=== PATIENT | male | born 1975 | race Caucasian/White ===

== ENCOUNTER → 2018-07-21 09:18 | Outpatient (CLI) | payer OTHER, SELFPAY ==
[2018-07-21 09:40] LABS: Add Manual Diff / Slide Review NO; Basophils Percent Auto 0.9 % (0-2); Eosinophils Percent Auto 4.1 % (2-4); Hematocrit 43.2 % (41-53); Hemoglobin 14.8 g/dL (13.5-17.5); Lymphocytes Percent Auto 27.3 % (25-40); Mean Corpuscular HGB Conc 34.3 % (30-36); Mean Corpuscular Hemoglobin 30.4 PG (26-34); Mean Corpuscular Volume 88.6 fL (80-100); Monocytes Percent Auto 11.5 % (3-14); Neutrophils Absolute Auto 3400 /uL (1500-7000); Neutrophils Percent Auto 56.2 % (50-75); Platelet Count 222 X10^3/uL (150-400); Red Blood Cell Count 4.87 X10^6/uL (4.5-5.9); Red Cell Distribution Width 13.1 % (11.6-14.8); White Blood Cell Count 6.1 X10^3/uL (4.5-11.0)
[2018-07-21 10:13] LABS: Alanine Aminotransferase 27 IU/L (21-72); Albumin 4.4 g/dL (3.5-5.0); Albumin Globulin Ratio 1.4 (1.0-2.8); Alkaline Phosphatase 52 U/L (38-126); Aspartate Aminotransferase 21 IU/L (17-59); BUN Creatinine Ratio 15.5 (6-22); Bilirubin Total 0.8 mg/dL (0.2-1.3); Blood Urea Nitrogen 17 mg/dL (9-20); Calcium 9.1 mg/dL (8.4-10.2); Carbon Dioxide 27 mmol/L (22-32); Chloride 102 mmol/L (98-107); Cholesterol 155 mg/dL (140-199); Estimated Glomerular Filt Rate > 60.0 mL/min (>60); Globulin 3.2 g/dL (1.7-4.1); Glucose 109 mg/dL (70-100); HDL Cholesterol 34 mg/dL (40-60); HEMOLYSIS < 15 (0-50); LDL Cholesterol Calculated 106 mg/dL (<100); Potassium 4.4 mmol/L (3.4-5.1); Sodium 139 mmol/L (137-145); Total Protein 7.6 g/dL (6.3-8.2); Triglycerides 77 mg/dL (35-150)
[2018-07-21 10:41] LABS: TSH w/ Reflex to FT4 2.55 uIU/mL (0.47-4.68)
== END ==
PROVIDERS: PCP Family Medicine; Visit Provider Family Medicine
DX: Z00.00 Encounter for general adult medical examination without abnormal findings (principal); E66.9 Obesity, unspecified
CPT/HCPCS: 36415; 80053; 80061; 84443; 85025

== ENCOUNTER → 2018-12-15 14:48 | Outpatient (CLI) | payer OTHER, SELFPAY ==
--- NOTE | 2018-12-15 14:49 | DI.RAD.S_ITS ---
PROCEDURE: XR FOREARM RT 2V INDICATIONS: distal right forearm pain TECHNIQUE: 2 views of the forearm were acquired. COMPARISON: None. FINDINGS: Bones: No fractures or dislocations. No suspicious bony lesions. Soft tissues: No suspicious soft tissue calcifications or masses. IMPRESSION: No fracture Dictated by: Jose Whitt M.D. on 12/15/2018 at 15:07 Approved by: Jose Whitt M.D. on 12/15/2018 at 15:08
== END ==
PROVIDERS: Family Provider Family Medicine; PCP Family Medicine; Visit Provider Physician Assistant
DX: M79.631 Pain in right forearm (principal)
CPT/HCPCS: 73090

== ENCOUNTER → 2019-07-31 15:53 | Outpatient (CLI) | payer OTHER, SELFPAY ==
--- NOTE | 2019-07-31 15:55 | DI.RAD.S_ITS ---
PROCEDURE: XR CERVICAL SPINE 2V OR 3V INDICATIONS: cervical neck pain TECHNIQUE: 3 view(s) of the cervical spine were acquired. COMPARISON: None. FINDINGS: Bones: No fractures or dislocations to the C7-T1 level. The lateral masses of C1 appear intact on the odontoid view. No suspicious bony lesions. There is straightening of normal cervical curvature. Soft tissues: No prevertebral soft tissue swelling. IMPRESSION: Straightening of normal cervical curvature. Otherwise, unremarkable exam. Dictated by: Gila Geronimo M.D. on 07/31/2019 at 16:35 Approved by: Gila Geronimo M.D. on 07/31/2019 at 16:35
== END ==
PROVIDERS: PCP Family Medicine; Visit Provider Family Medicine
DX: M54.2 Cervicalgia (principal); M54.12 Radiculopathy, cervical region
CPT/HCPCS: 72040

== ENCOUNTER 2019-08-12 15:00 | Emergency (ER) | payer OTHER, SELFPAY ==
[2019-08-12 15:09] VITALS: BP 124/80; PULSE 90; RESP 18; TEMP 37.1; O2SAT 98; BMI 38.6
--- NOTE | 2019-08-12 16:21 | ED_ITS ---
HPI - Neck Pain/Injury < JOHANNA Combs - Last Filed: 08/12/19 23:57> General Chief Complaint: Neck Pain/Injury Stated Complaint: neck and shoulder pain, thinks pinched nerve Time Seen by Provider: 08/12/19 16:04 Source: patient Mode of arrival: Ambulatory Limitations: no limitations History of Present Illness HPI Narrative: This is 43-year-old male, current vapor, presents to ED with chief complain of non-traumatic right upper thoracic/neck pain radiating to R lateral arm and to ulnar aspect fingers. Patient reports pain started about 20 days ago and was seen by his PCP, Dr. Mallory, and was diagnosed with cervical radiculopathy. Patient denies trauma, injury, or fall. Patient reports mildly decreased sensation on to his fingertips but denies weakness to upper extremities. Patient reports his pain super sharp. Patient is currently taking Gabapentin, Flexeril, meloxicam, and he additionally to 1000 mg of naproxen, however, patient reports the pain is not getting better and actually worse. Patient frequently thinks about the pain. Patient reports a warm compresses help with discomfort. Pain increases with hyperextension. Patient started physical therapy last . Related Data Previous Rx's Medication Instructions Recorded phentermine 37.5 mg capsule 37.5 mg PO BID #60 tab 10/20/18 fluticasone propionate 50 2 spray INTRANASAL QDAY #16 gram 01/12/19 mcg/actuation nasal spray,suspension cromolyn 4 % eye drops 2 drop EYE-BOTH QID #10 ml 01/26/19 levocetirizine 5 mg tablet See Rx Instructions .ROUTE 03/26/19 .COMPLEX #90 tablet tadalafil 5 mg tablet 5 mg PO DAILY #30 tab 06/13/19 meloxicam 15 mg tablet 15 mg PO DAILY #30 tab 07/31/19 orlistat 120 mg capsule 120 mg PO TID #90 cap 07/31/19 cyclobenzaprine 10 mg tablet 10 mg PO TID PRN #30 tab 08/08/19 gabapentin 300 mg capsule See Rx Instructions PO DAILY #60 08/08/19 cap lidocaine 1 patch TOP DAILY #15 each 08/12/19 Allergies Allergy/AdvReac Type Severity Reaction Status Date / Time Pertussis Vaccines Allergy Intermediate Verified 08/13/19 11:45 [PERTUSSIS VACCINES] Review of Systems <JOHANNA Damon - Last Filed: 08/12/19 23:57> Review of Systems Narrative: General: Denies fever, chills, fatigue, malaise, sweats. HEENT: Denies sinus pain, ear pain, sore throat, difficulty swallowing, dizziness. Respiratory: Denies dyspnea, cough, wheezing, hemoptysis, sputum. Cardiovascular: Denies chest pain, palpitations, orthopnea, edema. Gastrointestinal: Denies nausea, vomiting, abdominal pain, diarrhea, constipation, melena. : Denies dysuria, frequency, incontinence, hematuria, urinary retention. Musculoskeletal: See HPI Skin: Denies rash, skin lesions, or other. Neurologic: Denies weakness, headache, numbness, change in speech, confusion, seizures, incoordination. Psychiatric: No concerning psychosocial issues. 12-point review of systems is negative except for those stated above. Patient History <JOHANNA Damon - Last Filed: 08/12/19 23:57> Medical History Ankle pain (Chronic 2004) Chicken pox (Resolved ~1989) Chronic back pain (Chronic 2007) Shoulder pain (Chronic 2010) Surgical History Anesthesia (Resolved) History of third molar tooth extraction (Resolved) History of vasectomy (Resolved 2009) Status post LASIK surgery (Resolved 2002) Family History Brother Age: 36 Healthy male adult Father Diabetes mellitus Heart disease Essential hypertension Grandfather Lung cancer Mother Age: 74 Diabetes mellitus Osteoporosis Social History marital status: Smoking Status: Current some day smoker alcohol intake: current (1-2 A DAY ) substance use type: does not use Smoking Status: Current some day smoker tobacco type: vaping alcohol intake frequency: holidays/special occasions only Substance Use Type: does not use Exam <JOHANNA Damon - Last Filed: 08/12/19 23:57> Narrative Exam Narrative: General appearance: well developed, well nourished, in no acute distress. Head: normocephalic, atraumatic, no scalp lesions, non-tender. ENT: Hearing grossly intact. Nose without bleeding, purulent discharge or deviation. Facial sinuses nontender to palpate. Mucous membrane moist, no mucosal lesion. Throat without erythema, tonsillar hypertrophy or exudate. Uvula in midline, airway patent. Neck/Thyroid: neck supple, full range of motion, no visible masses or meningeal signs, no step-offs. No JVD, non-tender without lymphadenopathy. Skin: no suspicious rashes, lesions over visible areas. Warm and dry and appropriate color for ethnicity. Heart: no clubbing, no cyanosis, no edema. S1 and S2 normal. RRR w/o murmurs, clicks, or bruits. Lungs: Breathing even and unlabored. No stridor. No accessory muscles used. Able to speak in full sentences. Chest: normal shape and expansion. Abdomen: non-obese, non-distended. Neurologic: alert and oriented. Cognitive exam, [employer] and PNS grossly intact on informal exam. Psych: good eye contact, normal affect. Initial Vital Signs Initial Vital Signs: Vital Signs Temperature 98.7 F 08/12/19 15:09 Pulse Rate 90 08/12/19 15:09 Respiratory Rate 18 08/12/19 15:09 Blood Pressure 124/80 08/12/19 15:09 Pulse Oximetry 98 08/12/19 15:09 Back/Spine/Pelvis Back: normal to inspection Cervical Spine: cervical ROM normal, cervical muscular tenderness (lower cervical), pain with cervical ROM (hyperextension and flexion), No cervical spasm, No cervical spinal tenderness and No step off deformity Thoracic/Lumbar Spine: thoracic and lumbar spine normal to inspection, paraspinal tenderness (upper thoracic) and thoracic spinal tenderness (upper thoracic) Extrem Right upper extremity: normal to inspection, full ROM, normal capillary refill and hand Details: neurosensory exam normal Details: radial nerve sensory function normal and ulnar nerve sensory function normal, tendon exam normal, vascular exam and normal ROM of fingers; no edema Left upper extremity: normal to inspection, full ROM and normal capillary refill; no edema <Rosendo Rodriguez, - Last Filed: 08/13/19 13:19> Initial Vital Signs Initial Vital Signs: Vital Signs Temperature 98.7 F 08/12/19 15:09 Pulse Rate 90 08/12/19 15:09 Respiratory Rate 18 08/12/19 15:09 Blood Pressure 124/80 08/12/19 15:09 Pulse Oximetry 98 08/12/19 15:09 Scores <JOHANNA Damon - Last Filed: 08/12/19 23:57> GCS [place] coma scale eye opening: Spontaneous Beto coma scale verbal response: Orientated Beto coma scale motor response: Obey commands Beto coma scale total score: 15 Course <JOHANNA Damon - Last Filed: 08/12/19 23:57> Orders Ordered: Discontinued Medications Lidocaine (Lidoderm) 1 each TOP NOW ONE Stop: 08/12/19 16:38 Last Admin: 08/12/19 17:07 Dose: 1 each Documented by: PITA Pantoprazole Sodium (Protonix) 20 mg PO NOW ONE Stop: 08/12/19 16:38 Last Admin: 08/12/19 17:07 Dose: 20 mg Documented by: PITA Prednisone (Deltasone) 40 mg PO NOW ONE Stop: 08/12/19 16:38 Last Admin: 08/12/19 17:07 Dose: 40 mg Documented by: PITA Vital Signs Vital signs: Vital Signs - 8 hr 08/12/19 17:12 Pulse Rate 78 Respiratory Rate 16 Blood Pressure [Right Arm] 136/88 Pulse Oximetry 98 <Rosendo Rodriguez DO - Last Filed: 08/13/19 13:19> Orders Ordered: Discontinued Medications Lidocaine (Lidoderm) 1 each TOP NOW ONE Stop: 08/12/19 16:38 Last Admin: 08/12/19 17:07 Dose: 1 each Documented by: PITA Pantoprazole Sodium (Protonix) 20 mg PO NOW ONE Stop: 08/12/19 16:38 Last Admin: 08/12/19 17:07 Dose: 20 mg Documented by: PITA Prednisone (Deltasone) 40 mg PO NOW ONE Stop: 08/12/19 16:38 Last Admin: 08/12/19 17:07 Dose: 40 mg Documented by: PITA Vital Signs Vital signs: Vital Signs - 8 hr 08/12/19 17:12 Pulse Rate 78 Respiratory Rate 16 Blood Pressure [Right Arm] 136/88 Pulse Oximetry 98 MDM - Neck Pain/Injury <Rich SandersJOHANNA Truong - Last Filed: 08/12/19 23:57> Differential Diagnosis Differential diagnosis: Likely cervical radiculopathy, strain of neck muscle and other (upper thoracic pain) Medical Records Attestation: I reviewed the patient's medical records. [facility] Narrative Medical decision making narrative: Cspine Xray test done on 07/31/19 did not appreciated fractures or dislocation to the C7 through T1 level with the straightening of normal cervical curvature with normal forearm x-ray test was arranged by Dr. Mallory. Since there was no new trauma or injury since then, furt her imaging test was deferred. Patient has good sensation with light touch and bilateral equal strength on upper extremities. Patient reports some numbness to his fingertips. The patient is already on Flexeril, gabapentin 300 mg TID, and meloxicam. Patient stated he had taken additional 100 mg of naproxen and not Tylenol, advised not to take additional NSAIDS while on Meloxicam. He was started on additional dose of prednisone and trial on Lidocaine patch and remaining dose have been prescribed. Return precautions were discussed with the patient and patient advised to follow up with physical therapy and continue with current medications and gabapentin could be increased. If pain persists longer than expected, patient informed he may need further imaging test such as MRI. Patient verbalized understanding and agrees with the treatment plan. Discharge Plan Departure Patient Disposition: Home Clinical Impression: Radiculopathy affecting upper extremity Discharge Date/Time: 08/12/19 17:56 Instructions: DI for Cervical Radiculopathy Activity Restrictions/Additional Instructions: You have been diagnosed with [cervical radiculopathy. You were given prednisone 40 mg 1st dose here and lidocaine patch. Please continue to take prednisone once a day for next 4 days.]. What to do: *Take your medications as directed. The prescription has been transmitted to [facility] in [place]. Please continue with physical therapy. Lidocaine patch stays on for 12 and off for 12. You may not see improvement until several hours after the 1st dose of Prednisone. Since prednisone and NSAIDS could upset your stomach, you could take [id number] omeprazole 20 mg as needed daily w hile you're taking these medications. If you're taking meloxicam, please do not take additional NSAIDS but OTC Tylenol upto 650-1000 mg 4 times a day. *Follow up with your primary care provider in 2-3 days, call for an appointment. Let them know you were seen in the ED and that we asked you to be seen in follow up. *Return to ED if you have any new, worsening, or concerning symptoms, such as [ chest pain, breathing difficulty, unable to tolerate fluids, weakness to extremities, rash, fever]. Prescriptions: New lidocaine 5 % adhesive patch,medicated 1 patch TOP DAILY Qty: 15 RF: 0 No Action meloxicam [Mobic] 15 mg tablet 15 mg PO DAILY Qty: 30 RF: 0 Xenical 120 mg capsule 120 mg PO TID Qty: 90 RF: 0 phentermine [Adipex-P] 37.5 mg capsule 37.5 mg PO BID Qty: 60 RF: 1 fluticasone propionate 50 mcg/actuation spray,suspension 2 spray Intranasal QDAY Qty: 16 RF: 12 cromolyn 4 % drops 2 drop EYE-BOTH QID Qty: 10 RF: 12 levocetirizine 5 mg tablet See Rx Instructions .ROUTE .COMPLEX Qty: 90 RF: 1 tadalafil [Cialis] 5 mg tablet 5 mg PO DAILY Qty: 30 RF: 3 cyclobenzaprine 10 mg tablet 10 mg PO TID PRN (Reason: muscle spasm) Qty: 30 RF: 0 gabapentin 300 mg capsule See Rx Instructions PO DAILY Qty: 60 RF: 1 Referrals: Julián Mallory MD [Primary Care Provider] - <Roesndo Rodriguez, DO - Last Filed: 08/13/19 13:19> Sign Out Provider Sign Out Attestation: Dr Rodriguez Co-Sign Statement: I was available for consultation during this patient's emergency department visit. This chart is signed by myself for administrative purposes only. I did not have direct contact with this patient during this visit. They were seen independently by the APC.
[2019-08-12] MEDS: predniSONE 20 MG TABLET 40 MG PO (17:07)
[2019-08-12] MEDS: LIDOCAINE PATCH 1 EACH ADH..PATCH TOP (17:07)
[2019-08-12] MEDS: PANTOPRAZOLE 20 MG TABLET PO (17:07)
[2019-08-12 17:12] VITALS: BP 136/88; PULSE 78; RESP 16; O2SAT 98
== END 2019-08-12 17:56 | disposition home or self-care (01) ==
PROVIDERS: Emergency Provider Nurse Practitioner Family; PCP Family Medicine
DX: M54.12 Radiculopathy, cervical region (principal)
CPT/HCPCS: 99283

== ENCOUNTER → 2019-08-14 09:45 | Outpatient (CLI) | payer OTHER, SELFPAY ==
--- NOTE | 2019-08-14 09:47 | DI.MRI.S_ITS ---
PROCEDURE: MR CERVICAL SPINE WO/W CON INDICATIONS: worsening neck pain, decreased sensation R arm, febrile TECHNIQUE: Noncontrast sagittal T1 spin echo and T2 fast spin echo, sagittal STIR, foraminal oblique sagittal T2 fast spin echo, axial gradient echo or T2 fast spin echo through the cervical spine. After the administration of contrast, axial and sagittal T1 spin echo with fat saturation through the cervical spine. COMPARISON: [facility], CR, XR CERVICAL SPINE 2V OR 3V, 07/31/2019, 15:59. FINDINGS: Image quality: Diagnostic, with note made of motion artifact. Alignment and curvature: There is straightening of the internal cervical lordosis. No focal AP alignment abnormality is seen. Marrow: Marrow is normal in overall signal, without suspicious enhancement. Spinal cord: Visualized spinal cord has normal size and signal. No cerebellar tonsillar herniation. No abnormal intramedullary enhancement. Paraspinous soft tissues: No paravertebral masses or suspicious enhancement. C2-3: The disc height and disk signal are well-preserved. A mild degree of generalized disc osteophyte complex is seen. Mild facet joint hypertrophy is seen. There is moderate left-sided and mild to moderate right-sided neural foraminal narrowing seen. No significant central canal narrowing is seen. C3-4: The disc height and disk signal are well-preserved. Moderate disc osteophyte complex is seen, which is eccentric to the right. Moderate facet joint hypertrophy is seen. Moderate to severe bilateral neural foraminal narrowing is seen. Mild central canal narrowing is seen. C4-5: The disc height and disk signal are well-preserved. Moderate generalized disc osteophyte complex is seen. Moderate to severe bilateral neural foraminal narrowing is seen. No significant central canal narrowing is seen. C5-6: The disc height is well-preserved. Loss of disc signal is seen at this level. Moderate facet hypertrophy is seen. There is moderate to severe bilateral neural foraminal narrowing seen. No significant central canal narrowing is seen. C6-7: Mild loss of disc height is seen. Loss of disc signal is seen. Moderate disc osteophyte complex is seen, with a central/left disc osteophyte protrusion, as on series 3 image 31. There is moderate to severe bilateral neural foraminal narrowing seen. At least moderate central canal narrowing is seen, with associated mild mass effect upon the ventral spinal cord. C7-T1: The disc height and disc signal are relatively well-preserved. Mild to moderate disc osteophyte complex is seen. Moderate facet hypertrophy is seen. There is at least moderate bilateral neural foraminal narrowing seen. No significant central canal narrowing is seen. IMPRESSION: Multiple levels of cervical spine degenerative change are seen, which are overall most prominent at the C6-C7 level. Straightening of the normal cervical lordosis is seen, which is commonly observed in patients with muscular spasm. Dictated by: Wilber Melo M.D. on 08/14/2019 at 12:47 Approved by: Wilber Melo M.D. on 08/14/2019 at 12:56
== END ==
PROVIDERS: PCP Family Medicine; Referring Provider Family Medicine; Visit Provider Family Medicine
DX: M50.123 Cervical disc disorder at C6-C7 level with radiculopathy (principal); M47.22 Other spondylosis with radiculopathy, cervical region
CPT/HCPCS: 72156; A9579

== ENCOUNTER → 2020-05-09 08:51 | Outpatient (CLI) | payer OTHER, SELFPAY ==
[2020-05-09 10:01] LABS: Add Manual Diff / Slide Review NO; Basophils Absolute Auto 100 /uL (0-100); Eosinophils Absolute Auto 200 /uL (0-450); Eosinophils Percent Auto 3.6 % (2-4); Lymphocytes Absolute Auto 1600 /uL (1100-4500); Lymphocytes Percent Auto 28.2 % (25-40); Mean Corpuscular HGB Conc 33.3 % (30-36); Mean Corpuscular Hemoglobin 29.8 PG (26-34); Mean Corpuscular Volume 89.5 fL (80-100); Monocytes Absolute Auto 600 /uL (0-900); Monocytes Percent Auto 10.4 % (3-14); Neutrophils Absolute Auto 3300 /uL (1500-7000); Neutrophils Percent Auto 56.8 % (50-75); Platelet Count 170 X10^3/uL (150-400); Red Cell Distribution Width 13.7 % (11.6-14.8); White Blood Cell Count 5.8 X10^3/uL (4.5-11.0)
[2020-05-09 10:37] LABS: Alanine Aminotransferase 22 IU/L (<50); Albumin 4.3 g/dL (3.5-5.0); Albumin Globulin Ratio 1.5 (1.0-2.8); Alkaline Phosphatase 59 U/L (38-126); Aspartate Aminotransferase 23 IU/L (17-59); BUN Creatinine Ratio 20.4 (6-22); Bilirubin Total 0.6 mg/dL (0.2-1.3); Blood Urea Nitrogen 19 mg/dL (9-20); Calcium 9.3 mg/dL (8.4-10.2); Carbon Dioxide 28 mmol/L (22-32); Chloride 103 mmol/L (98-107); Cholesterol 162 mg/dL (140-199); Estimated Glomerular Filt Rate > 60.0 mL/min (>60); Globulin 2.8 g/dL (1.7-4.1); Glucose 98 mg/dL (70-100); HDL Cholesterol 36 mg/dL (40-60); HEMOLYSIS < 15 (0-50); LDL Cholesterol Calculated 113 mg/dL (<100); Potassium 4.3 mmol/L (3.4-5.1); Sodium 138 mmol/L (137-145); Total Protein 7.1 g/dL (6.3-8.2); Triglycerides 65 mg/dL (35-150)
[2020-05-09 11:02] LABS: TSH w/ Reflex to FT4 2.41 uIU/mL (0.47-4.68)
== END ==
PROVIDERS: PCP Family Medicine; Referring Provider Family Medicine; Visit Provider Family Medicine
DX: Z13.1 Encounter for screening for diabetes mellitus (principal); Z13.6 Encounter for screening for cardiovascular disorders
CPT/HCPCS: 36415; 80053; 80061; 84443; 85025

== ENCOUNTER → 2020-06-28 12:33 | Outpatient (CLI) | payer OTHER, SELFPAY ==
--- NOTE | 2020-06-28 12:36 | DI.MRI.S_ITS ---
PROCEDURE: MR KNEE LT WO CON INDICATIONS: Radiculopathy, cervical region,Unspecified interna TECHNIQUE: Noncontrast sagittal PD fast spin echo and T2 fast spin echo with fat saturation, sagittal 3-D FLASH with fat saturation; coronal T1 spin echo and PD fast spin echo with fat saturation, and axial PD fast spin echo with fat saturation through the knee. COMPARISON: None. FINDINGS: Image quality: Excellent. Menisci: The medial and lateral menisci demonstrate normal morphology and internal signal. The meniscal root ligaments appear intact. Cruciate ligaments: The anterior and posterior cruciate ligaments appear intact. Medial structures: Very low-grade proximal MCL sprain at its femoral insertion is likely present.. The posterior oblique ligament, semimembranosus tendon insertions, oblique popliteal ligament, and meniscocapsular junction appear intact. Visualized portions of the pes anserinus tendons appear normal. No abnormal bursal fluid. Lateral structures: The lateral collateral ligament, long and short heads of the biceps femoris tendon appear intact. The popliteus tendon appears normal; the popliteofibular ligament appears intact. The posterosuperior and anteroinferior popliteomeniscal fascicles appear intact. The arcuate and fabellofibular ligaments appear intact, on either side of the lateral inferior geniculate artery. Iliotibial band appears normal. Anterior structures: The quadriceps and patellar tendons appear intact. Patellar alignment is normal. No femoral trochlear dysplasia or ventral trochlear prominence. No edema in the infrapatellar fat pad. Bones and cartilage: There is marrow edema involving anterior weight-bearing portion of lateral femoral condyle with whole overlying moderate to high-grade chondromalacia and measures 4 x 3 millimeters in size suggestive of a osteochondral lesion in this area. No other area of marrow signal abnormality. Articulating cartilages in medial femoral tibial compartment and patellofemoral compartment are intact. Joint space: There is small amount of joint fluid. No Paul's cyst. Normal appearing synovial plicae are incidentally noted. IMPRESSION: 1. 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 No other area of marrow signal abnormality. 2. Cruciate ligaments are intact. Suggestion of very low-grade proximal MCL sprain. 3. No evidence of focal meniscal tear. Dictated by: Ulices Ford M.D. on 06/29/2020 at 12:09 Approved by: Ulices Ford M.D. on 06/29/2020 at 12:16
--- NOTE | 2020-06-28 12:36 | DI.MRI.S_ITS ---
PROCEDURE: MR CERVICAL SPINE WO CON INDICATIONS: Radiculopathy, cervical region,Unspecified interna TECHNIQUE: Noncontrast sagittal T1 spin echo and T2 fast spin echo, sagittal STIR, foraminal oblique sagittal T2 fast spin echo, and axial gradient echo or T2 fast spin echo through the cervical spine. COMPARISON: [facility], MR, MR CERVICAL SPINE WO/W CON, 08/14/2019, 10:15. FINDINGS: Image quality: Excellent. Alignment and Curvature: There is straightening of the normal cervical lordosis. No focal AP alignment abnormality is seen. Bone Marrow: Marrow demonstrates normal overall signal. Spinal Cord: Visualized spinal cord has normal size and signal. No cerebellar tonsillar herniation. Paraspinous Soft Tissues: No paravertebral masses. Prevertebral soft tissues are normal in thickness. C2-C3: The disc height is well-preserved. Loss of disc signal is seen at this level. A mild degree of generalized disc osteophyte complex is seen. Mild to moderate bilateral neural foraminal narrowing can be seen. No significant central canal narrowing is seen. No significant change from the prior. C3-C4: The disc height is well-preserved. Loss of disc signal is seen at this level. A mild degree of generalized disc osteophyte complex is seen. Mild to moderate facet hypertrophy is seen. Moderate to severe bilateral neural foraminal narrowing can be seen. Mild central canal narrowing is seen. Stable from the prior study. C4-C5: The disc height is well-preserved. Loss of disc signal is seen at this level. Moderate disc osteophyte complex is seen. Moderate facet joint hypertrophy is seen. Moderate to severe bilateral neural foraminal narrowing is seen. Minimal central canal narrowing is seen. Stable from the prior study. C5-C6: The disc height is well-preserved. Loss of disc signal is seen at this level. Moderate generalized disc osteophyte complex is seen. Moderate facet joint hypertrophy is seen. Moderate to severe right-sided and moderate left-sided neural foraminal narrowing can be seen. Minimal central canal narrowing is seen. No significant change from the prior. C6-C7: Mild loss of disc height is seen. Loss of disc signal is seen. Moderate generalized disc osteophyte complex is seen. There is a central/left disc osteophyte protrusion seen. Mild to moderate facet hypertrophy is seen. There is moderate to severe bilateral neural foraminal narrowing seen. Moderate central canal narrowing is seen. Minimal central canal narrowing is seen. This level slightly improved compared to the prior MRI. C7-T1: The disc height and disc signal are relatively well preserved. Mild to moderate disc osteophyte complex is seen. Mild facet joint hypertrophy is seen. There is moderate bilateral neural foraminal narrowing seen, left worse than right. The central canal is widely patent. Stable from the prior study. IMPRESSION: Cervical spine degenerative changes are seen, which are worst at the C6-C7 level. The degenerative change at C6-C7 has improved compared to the prior MRI. Otherwise, stable MRI study. Dictated by: Wilber Melo M.D. on 06/30/2020 at 9:15 Approved by: Wilber Melo M.D. on 06/30/2020 at 9:20
== END ==
PROVIDERS: PCP Family Medicine; Referring Provider Physical Medicine & Rehabilitation; Visit Provider Physical Medicine & Rehabilitation
DX: M47.22 Other spondylosis with radiculopathy, cervical region (principal); M23.92 Unspecified internal derangement of left knee; M94.262 Chondromalacia, left knee
CPT/HCPCS: 72141; 73721

== ENCOUNTER → 2021-12-02 15:15 | Outpatient (CLI) | payer OTHER, SELFPAY ==
[2021-12-02 16:38] LABS: Add Manual Diff / Slide Review NO; Basophils Absolute Auto 100 /uL (0-100); Basophils Percent Auto 1.1 % (0-2); Eosinophils Absolute Auto 200 /uL (0-450); Eosinophils Percent Auto 3.4 % (2-4); Hematocrit 40.1 % (41-53); Hemoglobin 13.8 g/dL (13.5-17.5); Lymphocytes Absolute Auto 1900 /uL (1100-4500); Mean Corpuscular HGB Conc 34.3 % (30-36); Mean Corpuscular Hemoglobin 30.3 PG (26-34); Mean Corpuscular Volume 88.5 fL (80-100); Monocytes Absolute Auto 900 /uL (0-900); Monocytes Percent Auto 11.9 % (3-14); Neutrophils Absolute Auto 4200 /uL (1500-7000); Neutrophils Percent Auto 57.6 % (50-75); Platelet Count 182 X10^3/uL (150-400); Red Blood Cell Count 4.53 X10^6/uL (4.5-5.9); Red Cell Distribution Width 13.5 % (11.6-14.8); White Blood Cell Count 7.2 X10^3/uL (4.5-11.0)
[2021-12-02 16:53] LABS: Alanine Aminotransferase 29 IU/L (<50); Albumin 4.4 g/dL (3.5-5.0); Albumin Globulin Ratio 1.4 (1.0-2.8); Alkaline Phosphatase 58 U/L (38-126); Aspartate Aminotransferase 30 IU/L (17-59); BUN Creatinine Ratio 11.8 (6-22); Bilirubin Total 0.8 mg/dL (0.2-1.3); Blood Urea Nitrogen 11 mg/dL (9-20); Calcium 8.7 mg/dL (8.4-10.2); Carbon Dioxide 25 mmol/L (22-32); Chloride 102 mmol/L (98-107); Cholesterol 182 mg/dL (140-199); Estimated Glomerular Filt Rate > 60 mL/min (>60); Globulin 3.1 g/dL (1.7-4.1); Glucose 76 mg/dL (70-100); HDL Cholesterol 45 mg/dL (40-60); HEMOLYSIS < 15 (0-50); LDL Cholesterol Calculated 121 mg/dL (<100); Potassium 3.8 mmol/L (3.4-5.1); Sodium 138 mmol/L (137-145); Total Protein 7.5 g/dL (6.3-8.2); Triglycerides 81 mg/dL (35-150)
[2021-12-02 17:20] LABS: Thyroid Stimulating Hormone 2.44 uIU/mL (0.47-4.68)
== END ==
PROVIDERS: PCP Family Medicine; Referring Provider Physician Assistant; Visit Provider Physician Assistant
DX: E78.00 Pure hypercholesterolemia, unspecified (principal); Z13.0 Encounter for screening for diseases of the blood and blood-forming organs and certain disorders involving the immune mechanism
CPT/HCPCS: 36415; 80053; 80061; 84443; 85025

== ENCOUNTER → 2022-05-17 16:40 | Outpatient (CLI) | payer OTHER, SELFPAY ==
[2022-05-17 19:09] LABS: Testosterone 402 ng/dL (132-813)
== END ==
PROVIDERS: PCP Family Medicine; Referring Provider Family Medicine; Visit Provider Family Medicine
DX: N52.9 Male erectile dysfunction, unspecified (principal)
CPT/HCPCS: 36415; 84403

== ENCOUNTER → 2024-05-01 10:03 | Outpatient (CLI) | payer OTHER, SELFPAY ==
--- NOTE | 2024-05-01 10:06 | DI.RAD.S_ITS ---
PROCEDURE: XR RIBS LT MIN 3V W CXR1V INDICATIONS: Left lateral rib pain approx T9-T10 level TECHNIQUE: 2 views of the ribs were acquired, along with a single view chest. COMPARISON: None. FINDINGS: Surgical changes and devices: None. Bones and chest wall: No fractures or dislocations. No suspicious bony lesions. Overlying soft tissues appear unremarkable. Lungs and pleura: No pleural effusions or pneumothorax. Lungs appear clear. Mediastinum: Mediastinal contours appear normal. Heart size is normal. IMPRESSION: No displaced rib fracture or pneumothorax. Dictated by: Nishant Patricia M.D. on 05/02/2024 at 9:57 Approved by: Nishant Patricia M.D. on 05/02/2024 at 9:58
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
== END ==
PROVIDERS: PCP Family Medicine; Referring Provider Physician Assistant; Visit Provider Physician Assistant
DX: R07.81 Pleurodynia (principal); M54.6 Pain in thoracic spine; M62.838 Other muscle spasm
CPT/HCPCS: 71101; 72072

== ENCOUNTER 2024-07-17 14:10 | Emergency (ER) | payer OTHER, SELFPAY ==
[2024-07-17] VITALS (9 sets, daily range): BP systolic 119–130; BP diastolic 71–82; PULSE 61–75; RESP 18–23; TEMP 37.2; O2SAT 98–100; BMI 31.1
--- NOTE | 2024-07-17 14:21 | DI.RAD.S_ITS ---
PROCEDURE: XR CHEST 1V INDICATIONS: chest pain TECHNIQUE: One view of the chest was acquired. COMPARISON: None. FINDINGS: Surgical changes and devices: None. Lungs and pleura: Lungs are clear. No pleural effusions or pneumothorax. Mediastinum: Mediastinal contours appear normal. Heart size is normal. Bones and chest wall: No suspicious bony lesions. Overlying soft tissues appear unremarkable. IMPRESSION: No acute cardiopulmonary abnormalities or focal consolidation. Dictated by: Ferdinand Wolf M.D. on 07/17/2024 at 15:27 Approved by: Ferdinand Wolf M.D. on 07/17/2024 at 15:27
--- NOTE | 2024-07-17 14:27 | EKG_ITS ---
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
[2024-07-17 14:59] LABS: Add Manual Diff / Slide Review NO; Basophils Absolute Auto 100 /uL (0-100); Basophils Percent Auto 0.9 % (0-2); Eosinophils Absolute Auto 200 /uL (0-450); Eosinophils Percent Auto 2.5 % (2-4); Hemoglobin 14.6 g/dL (13.5-17.5); Lymphocytes Absolute Auto 1500 /uL (1100-4500); Lymphocytes Percent Auto 23.7 % (25-40); Mean Corpuscular HGB Conc 33.9 % (30-36); Mean Corpuscular Volume 91.5 fL (80-100); Monocytes Absolute Auto 800 /uL (0-900); Monocytes Percent Auto 12.1 % (3-14); Neutrophils Absolute Auto 3900 /uL (1500-7000); Neutrophils Percent Auto 60.8 % (50-75); Platelet Count 184 X10^3/uL (150-400); Red Cell Distribution Width 13.4 % (11.6-14.8); White Blood Cell Count 6.5 X10^3/uL (4.5-11.0)
[2024-07-17 15:08] LABS: INR 1.1 (0.9-1.3); Prothrombin Time 12.6 SECONDS (9.4-12.5)
[2024-07-17 15:10] LABS: PTT Partial Thromboplastin Tim 34 SECONDS (25.1-36.5)
[2024-07-17 15:13] LABS: Alanine Aminotransferase 26 IU/L (<50); Albumin 4.8 g/dL (3.5-5.0); Albumin Globulin Ratio 1.7 (1.0-2.8); Alkaline Phosphatase 54 U/L (38-126); Aspartate Aminotransferase 30 IU/L (17-59); BUN Creatinine Ratio 20.4 (6-22); Blood Urea Nitrogen 22 mg/dL (9-20); Calcium 9.5 mg/dL (8.4-10.2); Carbon Dioxide 29 mmol/L (22-32); Chloride 101 mmol/L (98-107); Creatine Kinase 90 U/L (55-170); Estimated Glomerular Filt Rate > 60 mL/min (>60); Globulin 2.8 g/dL (1.7-4.1); Glucose 94 mg/dL (70-100); HEMOLYSIS < 15 (0-50); Lipase 56 U/L (23-300); Magnesium 1.9 mg/dL (1.6-2.3); Sodium 138 mmol/L (137-145); Total Protein 7.6 g/dL (6.3-8.2)
[2024-07-17 15:25] LABS: NT-proBNP (BNP-Adult 18+) < 20 pg/mL (<125); Troponin I < 0.012 ng/mL (0.01-0.034)
--- NOTE | 2024-07-17 17:29 | ED.ARRPALP ---
HPI - Arrhythmia/Palpitations General Chief Complaint: Arrhythmia/Palpitations Stated Complaint: PALPITATIONS Time Seen by Provider: 07/17/24 16:08 Source: patient Mode of arrival: Ambulatory History of Present Illness HPI narrative: Patient here with complains of palpitations for past 1 week. They are occurring more frequently. They have been off and on for the past 21 years since he was in the [place]. He has had Holter monitors with unknown diagnosis other than possible PVC but no medications were prescribed. No echocardiogram. Patient denies any chest pain dizziness or dyspnea. During history and physical. I did notice on monitor PVC and patient felt him. They are not sustained. They are intermittent. No recent illness. No new medications. Related Data Previous Rx's Medication Instructions Recorded diclofenac sodium 50 mg 50 mg PO BID PRN pain #60 tabs 05/01/24 tablet,delayed release tadalafil 5 mg tablet 5 mg PO DAILY #90 tabs 05/01/24 Allergies Allergy/AdvReac Type Severity Reaction Status Date / Time Pertussis Vaccines Allergy Intermediate Verified 05/01/24 09:30 [PERTUSSIS VACCINES] Review of Systems Review of Systems Narrative: GENERAL: Negative chills, fatigue, malaise, fever, sweats. HEENT: Negative sinus pain, ear pain, sore throat RESPIRATORY: Negative dyspnea, cough CARDIOVASCULAR: Negative chest pain, positive palpitations GASTROINTESTINAL: Negative nausea, vomiting, abdominal pain : Negative dysuria, frequency, hematuria MUSCULOSKELETAL: Negative muscle or bony pain SKIN: Negative rash, skin lesions NEUROLOGIC: Negative weakness, numbness ROS Unobtainable: All systems reviewed & are unremarkable except as noted in HPI and below Patient History Medical History (Updated 07/17/24 @ 17:42 by Jaylen Chen MD) Ankle pain (2004) Chicken pox (~1989) Chronic back pain (2007) Shoulder pain (2010) Right ankle sprain Surgical History Anesthesia Status post LASIK surgery (2002) History of third molar tooth extraction History of vasectomy (2009) Family History Brother Age: 41 Healthy male adult Father Diabetes mellitus Heart disease Essential hypertension Grandfather Lung cancer Mother Age: 79 Diabetes mellitus Osteoporosis Social History (Updated 05/13/20 @ 09:49 by Julián Mallory MD) marital status: Smoking Status: Former smoker alcohol intake: current (1-2 A DAY ) substance use type: does not use Smoking Status: Former smoker tobacco type: vaping alcohol intake frequency: holidays/special occasions only Exam Narrative Exam Narrative: GENERAL: in no distress, not toxic not dyspneic HEAD: Normocephalic. EYES: Pupils equal round ENT: Mucous membranes moist. NECK: Trachea midline. CARDIOVASCULAR: Regular rate and rhythm RESPIRATORY: Clear to auscultation. Breath sounds equal bilaterally. No wheezes, rales, or rhonchi. GASTROINTESTINAL: Abdomen soft, non-tender EXTREMITIES: No gross deformities. BACK: No flank tenderness. NEURO: AOx4. SKIN: Warm and dry PSYCH: Not anxious, is cooperative Initial Vital Signs Initial Vital Signs: Vital Signs Temperature 98.9 F 07/17/24 14:16 Pulse Rate 75 07/17/24 14:16 Respiratory Rate 18 07/17/24 14:16 Blood Pressure 121/76 07/17/24 14:16 Pulse Oximetry 98 07/17/24 14:16 Oxygen Delivery Method Room Air 07/17/24 14:16 Course Orders Ordered: Discontinued Medications Aspirin (Aspirin 81 Mg Chew Tab) 324 mg PO NOW ONE Stop: 07/17/24 14:22 Last Admin: 07/17/24 16:57 Dose: Not Given Documented By: LANEY Vital Signs Vital signs: Vital Signs - 8 hr 07/17/24 14:16 07/17/24 14:59 07/17/24 15:00 Temperature 98.9 F Pulse Rate 75 69 65 Respiratory Rate 18 Blood Pressure 121/76 Pulse Oximetry 98 100 100 Oxygen Delivery Method Room Air 07/17/24 15:02 07/17/24 15:02 07/17/24 15:30 Temperature Pulse Rate 61 70 Respiratory Rate 20 22 Blood Pressure 130/71 Pulse Oximetry 99 99 Oxygen Delivery Method 07/17/24 16:00 07/17/24 16:00 07/17/24 16:30 Temperature Pulse Rate 64 67 Respiratory Rate 18 18 Blood Pressure 119/76 Pulse Oximetry 100 99 Oxygen Delivery Method 07/17/24 16:30 07/17/24 17:00 07/17/24 17:00 Temperature Pulse Rate 63 Respiratory Rate 23 Blood Pressure 121/72 121/82 Pulse Oximetry 100 Oxygen Delivery Method 07/17/24 17:30 07/17/24 17:30 Temperature Pulse Rate 62 Respiratory Rate 22 Blood Pressure 125/78 Pulse Oximetry 100 Oxygen Delivery Method MDM - Arrhythmia/Palpitations Lab Data 07/17/24 14:37 07/17/24 14:37 Labs: Lab Results 07/17/24 Range/Units 14:37 WBC 6.5 (4.5-11.0) X10^3/uL RBC 4.70 (4.5-5.9) X10^6/uL Hgb 14.6 (13.5-17.5) g/dL Hct 43.0 (41-53) % MCV 91.5 (80-100) fL MCH 31.0 (26-34) PG MCHC 33.9 (30-36) % RDW 13.4 (11.6-14.8) % Plt Count 184 (150-400) X10^3/uL Neut % (Auto) 60.8 (50-75) % Lymph % (Auto) 23.7 L (25-40) % [place] % (Auto) 12.1 (3-14) % Eos % (Auto) 2.5 (2-4) % Baso % (Auto) 0.9 (0-2) % Neut # (Auto) 3900 (5981-8883) /uL Lymph # (Auto) 1500 (7992-3094) /uL [place] # (Auto) 800 (0-900) /uL Eos # (Auto) 200 (0-450) /uL Baso # (Auto) 100 (0-100) /uL PT 12.6 H (9.4-12.5) SECONDS INR 1.1 (0.9-1.3) APTT 34 (25.1-36.5) SECONDS Sodium 138 (137-145) mmol/L Potassium 4.0 (3.4-5.1) mmol/L Chloride 101 (98-107) mmol/L Carbon Dioxide 29 (22-32) mmol/L BUN 22 H (9-20) mg/dL Creatinine 1.08 (0.66-1.25) mg/dL Estimated GFR > 60 (>60) mL/min BUN/Creatinine Ratio 20.4 (6-22) Glucose 94 (70-100) mg/dL Calcium 9.5 (8.4-10.2) mg/dL Magnesium 1.9 (1.6-2.3) mg/dL Total Bilirubin 1.0 (0.2-1.3) mg/dL AST 30 (17-59) IU/L ALT 26 (<50) IU/L Alkaline Phosphatase 54 (38-126) U/L Total Creatine Kinase 90 (55-170) U/L Troponin I < 0.012 (0.01-0.034) ng/mL NT-Pro-B Natriuret Pep < 20 (<125) pg/mL Total Protein 7.6 (6.3-8.2) g/dL Albumin 4.8 (3.5-5.0) g/dL Globulin 2.8 (1.7-4.1) g/dL Albumin/Globulin Ratio 1.7 (1.0-2.8) Lipase 56 (23-300) U/L TSH 1.80 (0.47-4.68) uIU/mL Imaging Data Chest x-ray: Radiologist's Impresson: [address] [address] XRay Report Signed Patient: Pramod Servin Jr MR#: [id number] : 1975 Acct:[id number] Age/Sex: 48 / M Date of Service: 07/17/24 Loc: ED Accession Number: [id number] Procedure: XR chest 1V Ordering Provider: Jaylen Chen MD PROCEDURE: XR CHEST 1V INDICATIONS: chest pain TECHNIQUE: One view of the chest was acquired. COMPARISON: None. FINDINGS: Surgical changes and devices: None. Lungs and pleura: Lungs are clear. No pleural effusions or pneumothorax. Mediastinum: Mediastinal contours appear normal. Heart size is normal. Bones and chest wall: No suspicious bony lesions. Overlying soft tissues appear unremarkable. IMPRESSION: No acute cardiopulmonary abnormalities or focal consolidation. Dictated by: Ferdinand Wofl M.D. on 07/17/2024 at 15:27 Approved by: Ferdinand Wolf M.D. on 07/17/2024 at 15:27 [facility] Narrative Medical decision making narrative: Patient here with complains of palpitations for past 1 week. They are occurring more frequently. They have been off and on for the past 21 years since he was in the [place]. He has had Holter monitors with unknown diagnosis other than possible PVC but no medications were prescribed. No echocardiogram. Patient denies any chest pain dizziness or dyspnea. During history and physical. I did notice on monitor PVC and patient felt him. They are not sustained. They are intermittent. No recent illness. No new medications. After history and exam CBC CMP chest x-ray troponin TSH MDM Medical records reviewed: No recent visit for this complaint Differential considered: Includes but not limited to PVC a flare AFib SVT Lab Test results independently reviewed as above. Pertinent findings: WBC 6.5 hemoglobin 14.6 sodium 138 INR 1.1 potassium 4.0 GFR greater than 60 troponin less than 0.012 BNP less than 20 Independently reviewed EKG sinus rhythm with occasional PVCs Imaging studies independently reviewed: Chest x-ray no acute finding Consultations: 5:[address] Giraldo, cardiology services. No new medications to be started now. Follow up with primary care for 7 day Holter monitor. I did speak with primary care Dr. Mallory as well. He will see patient in the office in 2 days for Holter monitoring and re-evaluation. He would like to quantify the amount of PVCs to determine further testing or medications. Treatments: None indicated at this time. Re-evaluations: 5:45 p.m.. Spoke with patient and . Discussed with him my discussion with Cardiology and primary care. He will call the office tomorrow for office appointment this for Holter monitor. No new medications indicated this time. Discussion: Appropriate for discharge home. Exam and laboratory studies are reassuring. Return precautions reviewed with patient . Cardiology services and primary care provider was contacted. Diagnosis: Palpitation Discharge Plan Departure Patient Disposition: Home Clinical Impression: Palpitations Instructions: Premature Ventricular Beats, DI for Arrhythmias Activity Restrictions/Additional Instructions: Your exam and laboratory studies are reassuring. You are having PVCs that are causing your palpitations. Please call your family doctor tomorrow for office appointment for this . Return if worse if any questions or concerns. You will need a 7 day Holter monitor. Cardiology service was contacted today as well. Prescriptions: No Action diclofenac sodium 50 mg tablet,delayed release (DR/EC) 50 mg PO BID PRN (Reason: pain) Qty: 60 3RF Rx Instructions: Take one tablet twice daily NEEDED for musculoskeletal pain tadalafil 5 mg tablet 5 mg PO DAILY Qty: 90 3RF Rx Instructions: Take one tablet once daily Referrals: Julián Mallory MD [Primary Care Provider] - Stand Alone Forms: Patient Portal/API/Survey
== END 2024-07-17 17:58 | disposition home or self-care (01) ==
PROVIDERS: Emergency Provider Emergency Medicine; PCP Family Medicine
DX: R00.2 Palpitations (principal); I49.3 Ventricular premature depolarization
CPT/HCPCS: 71045; 80053; 82550; 83690; 83735; 83880; 84443; 84484; 85025; 85610; 85730; 93005; 93010; 99282; 99284

== ENCOUNTER → 2024-10-30 18:44 | Outpatient (CLI) | payer OTHER, SELFPAY ==
--- NOTE | 2024-10-30 18:52 | DI.MRI.S_ITS ---
PROCEDURE: MR CERVICAL SPINE WO CON INDICATIONS: Neck pain w/numbness tingling of left arm/hand TECHNIQUE: Noncontrast sagittal T1 spin echo and T2 fast spin echo, sagittal STIR, foraminal oblique sagittal T2 fast spin echo, and axial gradient echo or T2 fast spin echo through the cervical spine. COMPARISON: [facility], MR, MR CERVICAL SPINE WO CON, 06/28/2020, 13:13. FINDINGS: Image quality: Excellent. Alignment and Curvature: There is normal bony alignment. Bone Marrow: Marrow demonstrates normal overall signal. Spinal Cord: Visualized spinal cord has normal size and signal. No cerebellar tonsillar herniation. Paraspinous Soft Tissues: No paravertebral masses. Prevertebral soft tissues are normal in thickness. C2-C3: Loss of disc signal. No central stenosis. No neural foraminal narrowing. No neural compression. C3-C4: Loss of disc signal. Minimal, diffuse disc bulge. No central stenosis. Mild bilateral uncovertebral joint hypertrophy. Moderate bilateral neural foraminal narrowing. No neural compression. C4-C5: Loss of disc signal. Mild, diffuse disc bulge. Mild bilateral facet hypertrophy. Mild bilateral uncovertebral hypertrophy. No central canal stenosis. Moderate to severe right and severe left neural foraminal narrowing with compression of the exiting left C5 nerve root. C5-C6: Loss of disc signal. Mild, diffuse disc bulge. Mild bilateral facet hypertrophy. Moderate right and mild left uncovertebral joint hypertrophy. No central canal narrowing. Severe right and moderate left neural foraminal narrowing with compression of the exiting right C6 nerve root. C6-C7: Loss of disc signal and height. Moderate, diffuse disc bulge. Mild bilateral facet hypertrophy. Severe bilateral uncovertebral hypertrophy. Moderate narrowing of the central canal. Severe bilateral neural foraminal narrowing with compression of the exiting C7 nerve roots. C7-T1: Slight loss of disc signal. Mild bilateral facet hypertrophy. No central stenosis. No neural foraminal narrowing. No neural compression. IMPRESSION: Multilevel degenerative disc disease. Multilevel facet and uncovertebral arthropathy. No severe central canal stenosis. Severe left C4-C5 neural foraminal stenosis with compression of the left C5 nerve root. Severe right C5-C6 neural foraminal stenosis with compression of the right C6 nerve root. Severe bilateral C6-C7 neural foraminal stenosis with compression of the bilateral C7 nerve roots. Dictated by: Marline Jennings MD, PhD on 10/31/2024 at 13:12 Approved by: Marline Jennings MD, PhD on 10/31/2024 at 13:20
== END ==
PROVIDERS: PCP Family Medicine; Referring Provider Physician Assistant; Visit Provider Physician Assistant
DX: M50.121 Cervical disc disorder at C4-C5 level with radiculopathy (principal); M47.22 Other spondylosis with radiculopathy, cervical region; M48.02 Spinal stenosis, cervical region
CPT/HCPCS: 72141